=== PATIENT | female | born 1965 | race American Indian/Alaskan Native ===

== ENCOUNTER 2021-01-03 08:28 | Emergency (ER) | payer OTHER ==
[2021-01-03 09:03] VITALS: BP 166/99
--- NOTE | 2021-01-03 10:45 | Emergency Department Report ---
HPI - General Chief Complaint: Allergic Reaction PUI?: No Time Seen by Provider: 01/03/21 09:47 - HPI HPI: Is a very pleasant 55-year-old female who presents the emergency department chief complaint of burning and rash to the bilateral hands that has been present over the past week. She also reports she has noticed a small rash that is resolving under the left jawline into the anterior neck. She denies any difficulty breathing, difficulty swallowing, fever, chills, night sweats, headache, dizziness, blurry vision, nausea,, diarrhea, chest pain, shortness of breath, weakness or any other associated symptoms. She reports she feels as if her hands are swollen and tight and notes multiple small bumps especially between the fingers. She does report she recently got her nails done in the used a new dipping powder and she is concerned she may be allergic to it. ED Past Medical Hx - Past Medical History Previous Medical History?: No - Surgical History Past Surgical History?: Yes Hx Breast Surgery: Yes (dave breast biopsy) Additional Surgical History: hysterectomy - Social History Smoking Status: Never Smoker Substance Use Type: Alcohol - Medications Home Medications: Home Medications Medication Instructions Recorded Confirmed Last Taken Type Clobetasol 0.05% [Temovate] 1 applicatio TP BID #1 tube 01/03/21 Unknown Rx hydrOXYzine PAMOATE [Vistaril] 25 mg PO Q6HR PRN #30 capsule 01/03/21 Unknown Rx methylPREDNISolone [Medrol 4MG 4 mg PO ONCE #1 tab.ds.pk 01/03/21 Unknown Rx DOSEPAK (21 tabs)] ED Review of Systems ROS: Stated complaint: FINGERS/SWOLLEN BUMPS/ITCH/BURNING Other details as noted in HPI Comment: All other systems reviewed and negative Constitutional: denies: chills, fever Eyes: denies: eye pain, eye discharge, vision change ENT: denies: ear pain, throat pain Respiratory: denies: cough, shortness of breath, wheezing Cardiovascular: denies: chest pain, palpitations Endocrine: no symptoms reported Gastrointestinal: denies: abdominal pain, nausea, diarrhea Genitourinary: denies: urgency, dysuria, discharge Musculoskeletal: denies: back pain, joint swelling, arthralgia Skin: as per HPI, rash, pruritus. denies: lesions Neurological: denies: headache, weakness, paresthesias Psychiatric: denies: anxiety, depression Hematological/Lymphatic: denies: easy bleeding, easy bruising Physical Exam - Physical Exam Vital Signs: Vital Signs 01/03/21 08:59 Temperature 98.0 F Pulse Rate 68 Respiratory 17 Rate Blood Pressure 166/99 O2 Sat by Pulse 100 Oximetry General: GENERAL APPEARANCE: Well-developed, well-nourished, no acute distress HEENT: Normocephalic and atraumatic. No scleral icterus. Pupils are equal, round, and reactive to light and accommodation. No conjunctival injection is noted. Oropharynx is clear. Mouth revealed good dentition, no lesions. Tympanic membranes are clear. NECK: Supple. Trachea is midline. No evidence of thyroid enlargement. No lymphadenopathy or tenderness. CHEST: Symmetric. Nontender to palpation. LUNGS: Breath sounds are equal and clear bilaterally. No wheezes, rhonchi, or rales. HEART: Regular rate and rhythm with normal S1 and S2. No murmurs, gallops, or rubs. BREASTS: Symmetrical. No skin or nipple retractions. No nipple discharges or masses. ABDOMEN: Soft, flat, and benign. No mass, tenderness, guarding, or rebound. No organomegaly or hernia. Bowel sounds are present. No CVA tenderness or flank mass. GENITOURINARY: Deferred RECTAL: Deferred EXTREMITIES: No cyanosis, clubbing, or edema. No lower extreme edema, negative Homans sign bilaterally NEUROLOGIC: No focal sensory or motor deficits are noted. Gait is normal. Cranial nerves II through XII are intact. Deep tendon reflexes are intact. PSYCHIATRIC: The patient is awake, alert, and oriented x3. Recent and remote memory is intact. Appropriate mood and affect. SKIN: Warm, dry, and well perfused. Good turgor. Multiple small flesh-colored papules all over the dorsum of the hands and in between the fingers. No palmar lesions. Skin is slightly edematous. Full active range of motion of all the fingers to flexion extension of the DIP PIP MCP joints. Normal distal sensation and capillary refill. No open wounds. LYMPHATICS: No cervical, axillary, or groin adenopathy is noted. ED Course Vital Signs 01/03/21 08:59 Temperature 98.0 F Pulse Rate 68 Respiratory 17 Rate Blood Pressure 166/99 O2 Sat by Pulse 100 Oximetry ED Medical Decision Making - Medical Decision Making Patient's exam is very classic for dyshidrotic eczema. Due to the widespread rash on both hands I will cover her with oral antibiotics and antihistamines as well as topical antibiotics and recommended dermatology follow-up. Recommend she return to the emergency department if she develops any change or worsening symptoms. Symptoms started 1 week ago and the patient does not have any difficulty breathing or any other signs to concern for a angioedema or anaphylaxis. She is agreeable to plan all of her questions were answered. - Differential Diagnosis Dyshidrotic eczema, contact dermatitis, primary syphilis Critical care attestation.: If time is entered above; I have spent that time in minutes in the direct care of this critically ill patient, excluding procedure time. ED Disposition Clinical Impression: Dyshidrotic eczema Disposition: 01 HOME / SELF CARE / HOMELESS Is pt being admited?: No Condition: Stable Instructions: Dyshidrotic Eczema Prescriptions: methylPREDNISolone [Medrol 4MG DOSEPAK (21 tabs)] 4 mg PO ONCE #1 tab.ds.pk Clobetasol 0.05% [Temovate] 1 applicatio TP BID #1 tube hydrOXYzine PAMOATE [Vistaril] 25 mg PO Q6HR PRN #30 capsule PRN Reason: Itching Referrals: JORGE ALBERTO DEL CASTILLO MD [Staff Physician] - 3-5 Days Time of Disposition: 10:44
== END 2021-01-03 11:16 | disposition home or self-care (01) ==
LOC: ED 08:28
DX: L30.1 Dyshidrosis [pompholyx] (principal); F10.20 Alcohol dependence, uncomplicated
CPT/HCPCS: 99282